=== PATIENT | male | born 2000 | race Caucasian/White ===

== ENCOUNTER 2023-08-02 16:33 | Inpatient (IN) | payer BC, OTHER ==
[~2023-08-02 16:33] MED LIST: Iopamidol 300 61% 100 ML VIAL FS ONE
[2023-08-02] MEDS ORDERED: Ondansetron PF 4 MG/2 ML Vial ONE (17:01)
[2023-08-02] MEDS ORDERED: Morphine 4 MG/ML VIAL ONE ×3 (17:01→20:32)
[2023-08-02 17:23] LABS: #Eosinphils 0.1 10x3/uL (0.0-0.5); #Monocytes 0.7 10x3/uL (0.0-1.1); #Neutrophils 7.7 10x3/uL (1.5-8.4); %Basophils 0.2 % (0.0-2.0); %Eosinophils 0.7 % (0.0-6.0); %Lymphocytes 22.4 % (18.0-47.0); %Monocytes 6.5 % (0.0-10.0); %Neutrophils 69.9 % (40.0-75.0); Hematocrit 43.1 % (38.8-50.0); Hemoglobin 14.9 g/dL (13.5-17.5); Mean Corpuscular HGB CONC 34.6 g/dL (32.0-36.0); Mean Corpuscular Hemoglobin 30.7 pg (27.0-33.0); Mean Corpuscular Volume 88.7 fl (81.2-95.1); Mean Platelet Volume 10.9 fl (7.4-10.4); Platelet Count 278 10x3/uL (150-450); RBC Distribution Width 13.1 % (11.5-14.5); Red Blood Cell (RBC) Count 4.86 10x6/uL (4.32-5.72)
[2023-08-02 17:46] LABS: ALT (SGPT) 39 U/L (8-55); AST (SGOT) 28 U/L (5-34); Albumin 4.8 g/dL (3.5-5.0); Alkaline Phosphatase 65 U/L (40-110); Anion Gap 12 mmol/L (10-20); BUN (Urea Nitrogen) 14 mg/dL (8.9-20.6); Bilirubin, Total 0.6 mg/dL (0.2-1.2); Calc. Creatinine Clearance 0 mL/min (70-130); Calcium 9.4 mg/dL (7.8-10.44); Carbon Dioxide 24 mmol/L (22-29); Chloride 106 mmol/L (98-107); Estimated GFR 130; Glucose 94 mg/dL (70-105); Lipase 11 U/L (8-78); Potassium 3.6 mmol/L (3.5-5.1); Protein, Total 7.8 g/dL (6.0-8.3); Sodium 138 mmol/L (136-145)
[2023-08-02 19:39] LABS: Bilirubin Neg (Negative); Blood, Urine Negative (Negative); Glucose, Urine (Dipstick) Normal (Negative); Ketone, Urine Negative (Negative); Leukocyte Negative (Negative); Nitrite Negative (Negative); Protein, Urine (Dipstick) Negative (Neg-Trace); Specific Gravity, Urine 1.005 (1.005-1.030); Urobilinogen Normal mg/dL (Less than 2); pH, Urine 6.5 (5.0-9.0)
[2023-08-02 19:41] LABS: Clarity Clear (Clear)
[2023-08-02 20:02] LABS: Bacteria/HPF Rare-Few HPF (None Seen); CAUTI Indications for Culture Pelvic or flank pain; RBC/HPF None Seen HPF (0-3); Squamous Epithelial None Seen HPF (0-3); WBC/HPF None Seen HPF (0-3)
[2023-08-02 20:03] LABS: Urine Culture Reflex No No
[2023-08-02] MEDS: Morphine 4 MG/ML VIAL SLOW IVP PRN (20:33)
[2023-08-02] MEDS ORDERED: methylPREDNISolone Sod Succ/PF 125 MG/2 ML VIAL ONE (21:20)
[2023-08-02] MEDS: Lactated Ringer's 500 ML IV SCH (21:23)
[2023-08-02] MEDS: methylPREDNISolone Sod Succ 40 MG VIAL IVP SCH (21:23)
[2023-08-02] MEDS: Dextrose 5%-Lactated Ringers 1,000 ML IV SCH (22:46)
[2023-08-03] MEDS ORDERED: Morphine 4 MG/ML VIAL ONE ×3 (00:37→10:45)
[2023-08-03] MEDS ORDERED: Ondansetron PF 4 MG/2 ML Vial ONE (00:37)
[2023-08-03] MEDS: Ondansetron PF 4 MG/2 ML Vial IVP PRN (00:41)
[2023-08-03 03:49] LABS: #Monocytes 0.1 10x3/uL (0.0-1.1); #Neutrophils 7.8 10x3/uL (1.5-8.4); %Basophils 0.1 % (0.0-2.0); %Lymphocytes 13.5 % (18.0-47.0); %Monocytes 1.4 % (0.0-10.0); %Neutrophils 84.8 % (40.0-75.0); Hematocrit 39.2 % (38.8-50.0); Mean Corpuscular HGB CONC 33.2 g/dL (32.0-36.0); Mean Corpuscular Hemoglobin 29.7 pg (27.0-33.0); Mean Corpuscular Volume 89.7 fl (81.2-95.1); Mean Platelet Volume 10.7 fl (7.4-10.4); Platelet Count 251 10x3/uL (150-450); Red Blood Cell (RBC) Count 4.37 10x6/uL (4.32-5.72); White Blood Cell (WBC) Count 9.2 10x3/uL (3.5-10.5)
[2023-08-03 04:01] LABS: Anion Gap 11 mmol/L (10-20); BUN (Urea Nitrogen) 9 mg/dL (8.9-20.6); CRP (Inflammatory) Less than 0.50 mg/dL (= or < 0.5); Calc. Creatinine Clearance 202 mL/min (70-130); Calcium 8.6 mg/dL (7.8-10.44); Carbon Dioxide 26 mmol/L (22-29); Chloride 105 mmol/L (98-107); Estimated GFR 131; Glucose 131 mg/dL (70-105); Magnesium 2.1 mg/dL (1.6-2.6); Potassium 4.1 mmol/L (3.5-5.1); Sodium 138 mmol/L (136-145)
[2023-08-03] MEDS ORDERED: Enoxaparin 40 MG (0.4 mL) SYRINGE ONE (09:08)
[2023-08-03] MEDS ORDERED: Pantoprazole 40 MG VIAL ONE (09:08)
[2023-08-03] MEDS ORDERED: methylPREDNISolone Sod Succ 40 MG VIAL ONE (09:08)
[2023-08-03] MEDS: Enoxaparin 40 MG (0.4 mL) SYRINGE SC SCH (09:24)
[2023-08-03] MEDS: methylPREDNISolone Sod Succ 40 MG VIAL IVP SCH (09:24)
[2023-08-03] MEDS: Pantoprazole 40 MG VIAL IVP SCH (09:25)
[2023-08-03] MEDS: Morphine 2 MG/ML VIAL SLOW IVP PRN (15:15)
[2023-08-03] MEDS: Acetaminophen 325 MG TAB PO PRN (17:36)
[2023-08-04] MEDS: Dextrose 5%-Lactated Ringers 1,000 ML IV SCH (14:13)
[2023-08-04] MEDS: methylPREDNISolone Sod Succ 40 MG VIAL IVP SCH (20:33)
[2023-08-05] MEDS: HYDROcodone/Acetaminophen 5/325 mg Tablet PO SCH (01:06)
[2023-08-05] MEDS: Morphine 2 MG/ML VIAL SLOW IVP SCH ×2 (02:23→04:12)
[2023-08-05 03:54] LABS: #Monocytes 0.3 10x3/uL (0.0-1.1); #Neutrophils 7.6 10x3/uL (1.5-8.4); %Lymphocytes 12.9 % (18.0-47.0); %Monocytes 3.2 % (0.0-10.0); %Neutrophils 83.6 % (40.0-75.0); Hemoglobin 13.5 g/dL (13.5-17.5); Mean Corpuscular HGB CONC 33.8 g/dL (32.0-36.0); Mean Corpuscular Hemoglobin 30.1 pg (27.0-33.0); Mean Corpuscular Volume 89.3 fl (81.2-95.1); Mean Platelet Volume 11.1 fl (7.4-10.4); Platelet Count 230 10x3/uL (150-450); RBC Distribution Width 13.2 % (11.5-14.5); Red Blood Cell (RBC) Count 4.48 10x6/uL (4.32-5.72); White Blood Cell (WBC) Count 9.1 10x3/uL (3.5-10.5)
[2023-08-05 04:17] LABS: Lactic Acid 1.2 mmol/L (0.5-2.2)
[2023-08-05 04:19] LABS: Anion Gap 12 mmol/L (10-20); BUN (Urea Nitrogen) 5 mg/dL (8.9-20.6); Calc. Creatinine Clearance 223 mL/min (70-130); Calcium 8.7 mg/dL (7.8-10.44); Carbon Dioxide 26 mmol/L (22-29); Chloride 104 mmol/L (98-107); Estimated GFR 135; Glucose 108 mg/dL (70-105); Potassium 3.4 mmol/L (3.5-5.1); Sodium 139 mmol/L (136-145)
[2023-08-05] MEDS: traMADol HCl 50 MG TAB PO SCH (06:15)
[2023-08-05] MEDS: Lactated Ringer's 1,000 ML IV SCH (07:16)
[2023-08-05] MEDS: Dicyclomine 10 MG CAP PO SCH (08:24)
[2023-08-05] MEDS ORDERED: Iopamidol 300 61% 100 ML VIAL FS ONE (10:39)
[2023-08-05] MEDS: Morphine 2 MG/ML VIAL SLOW IVP PRN (13:48)
[2023-08-06 05:34] LABS: #Monocytes 0.7 10x3/uL (0.0-1.1); #Neutrophils 5.7 10x3/uL (1.5-8.4); %Basophils 0.1 % (0.0-2.0); %Lymphocytes 24.1 % (18.0-47.0); %Monocytes 8.2 % (0.0-10.0); %Neutrophils 67.4 % (40.0-75.0); Hematocrit 39.4 % (38.8-50.0); Hemoglobin 12.9 g/dL (13.5-17.5); Mean Corpuscular HGB CONC 32.7 g/dL (32.0-36.0); Mean Corpuscular Hemoglobin 29.1 pg (27.0-33.0); Mean Corpuscular Volume 88.9 fl (81.2-95.1); Mean Platelet Volume 11.3 fl (7.4-10.4); Platelet Count 244 10x3/uL (150-450); RBC Distribution Width 13.4 % (11.5-14.5); Red Blood Cell (RBC) Count 4.43 10x6/uL (4.32-5.72); White Blood Cell (WBC) Count 8.4 10x3/uL (3.5-10.5)
[2023-08-06] MEDS: Dicyclomine 10 MG CAP PO SCH (09:11)
[2023-08-06] MEDS: Polyethylene Glycol 3350 17 GM Packet PO SCH (09:33)
[2023-08-06] MEDS: Sodium Chloride 0.9% 500 ML IV SCH (10:07)
[2023-08-06 13:29] LABS: Anion Gap 12 mmol/L (10-20); BUN (Urea Nitrogen) 11 mg/dL (8.9-20.6); Calc. Creatinine Clearance 199 mL/min (70-130); Carbon Dioxide 27 mmol/L (22-29); Chloride 103 mmol/L (98-107); Estimated GFR 131; Glucose 98 mg/dL (70-105); Potassium 3.4 mmol/L (3.5-5.1); Sodium 139 mmol/L (136-145)
[2023-08-06] MEDS: azaTHIOprine 50 MG TAB PO SCH (13:47)
[2023-08-06] MEDS: Sodium Chloride 0.9% 1,000 ML IV SCH (13:48)
[2023-08-06] MEDS: HYDROcodone/Acetaminophen 5/325 mg Tablet PO PRN (13:54)
[2023-08-06 14:05] LABS: Lavender RECEIVED; Red RECEIVED
[2023-08-07] MEDS: Gabapentin 300 MG CAP PO SCH (01:09)
[2023-08-07] MEDS: Ketorolac Tromethamine 30 MG (1 mL) VIAL IVP SCH (02:00)
[2023-08-07] MEDS: Morphine 2 MG/ML VIAL SLOW IVP SCH (02:04)
[2023-08-07 03:55] LABS: #Monocytes 0.7 10x3/uL (0.0-1.1); #Neutrophils 8.6 10x3/uL (1.5-8.4); %Basophils 0.1 % (0.0-2.0); %Lymphocytes 12.8 % (18.0-47.0); %Monocytes 6.7 % (0.0-10.0); %Neutrophils 80.1 % (40.0-75.0); Hemoglobin 13.5 g/dL (13.5-17.5); Mean Corpuscular HGB CONC 34.6 g/dL (32.0-36.0); Mean Corpuscular Hemoglobin 30.5 pg (27.0-33.0); Mean Corpuscular Volume 88.2 fl (81.2-95.1); Mean Platelet Volume 11.1 fl (7.4-10.4); Platelet Count 240 10x3/uL (150-450); RBC Distribution Width 13.2 % (11.5-14.5); Red Blood Cell (RBC) Count 4.42 10x6/uL (4.32-5.72); White Blood Cell (WBC) Count 10.7 10x3/uL (3.5-10.5)
[2023-08-07 04:16] LABS: Anion Gap 12 mmol/L (10-20); BUN (Urea Nitrogen) 10 mg/dL (8.9-20.6); Calc. Creatinine Clearance 229 mL/min (70-130); Calcium 8.3 mg/dL (7.8-10.44); Carbon Dioxide 25 mmol/L (22-29); Chloride 103 mmol/L (98-107); Estimated GFR 137; Glucose 111 mg/dL (70-105); Sodium 137 mmol/L (136-145)
[2023-08-07] MEDS: Potassium Chloride 20 MEQ TAB PO SCH (08:37)
[2023-08-07] MEDS: azaTHIOprine 50 MG TAB PO SCH (08:38)
[2023-08-07] MEDS ORDERED: azaTHIOprine 50 MG TAB PO SCH (09:00)
[2023-08-07] MEDS ORDERED: Communication Order-Pharmacy FS SCH (15:45)
[2023-08-08 04:58] LABS: #Monocytes 0.3 10x3/uL (0.0-1.1); #Neutrophils 6.2 10x3/uL (1.5-8.4); %Basophils 0.1 % (0.0-2.0); %Lymphocytes 17.8 % (18.0-47.0); %Monocytes 4.3 % (0.0-10.0); %Neutrophils 77.3 % (40.0-75.0); Hematocrit 40.4 % (38.8-50.0); Hemoglobin 13.5 g/dL (13.5-17.5); Mean Corpuscular HGB CONC 33.4 g/dL (32.0-36.0); Mean Corpuscular Hemoglobin 30.1 pg (27.0-33.0); Mean Platelet Volume 11.7 fl (7.4-10.4); Platelet Count 229 10x3/uL (150-450); RBC Distribution Width 13.3 % (11.5-14.5); Red Blood Cell (RBC) Count 4.49 10x6/uL (4.32-5.72)
[2023-08-08 05:06] LABS: Anion Gap 13 mmol/L (10-20); BUN (Urea Nitrogen) 8 mg/dL (8.9-20.6); Calc. Creatinine Clearance 214 mL/min (70-130); Calcium 8.2 mg/dL (7.8-10.44); Carbon Dioxide 23 mmol/L (22-29); Chloride 105 mmol/L (98-107); Estimated GFR 136; Glucose 102 mg/dL (70-105); Potassium 3.4 mmol/L (3.5-5.1); Sodium 138 mmol/L (136-145)
[2023-08-08] MEDS: Potassium Bicarbonate/Cit Ac 20 MEQ TAB PO SCH (09:23)
[2023-08-08] MEDS: Potassium Chloride 20 MEQ TAB PO SCH (11:00)
[2023-08-09 04:25] LABS: #Monocytes 0.3 10x3/uL (0.0-1.1); #Neutrophils 6.3 10x3/uL (1.5-8.4); %Basophils 0.1 % (0.0-2.0); %Lymphocytes 16.2 % (18.0-47.0); %Monocytes 3.8 % (0.0-10.0); %Neutrophils 79.5 % (40.0-75.0); Anion Gap 12 mmol/L (10-20); BUN (Urea Nitrogen) 10 mg/dL (8.9-20.6); Calc. Creatinine Clearance 214 mL/min (70-130); Calcium 8.5 mg/dL (7.8-10.44); Carbon Dioxide 25 mmol/L (22-29); Chloride 101 mmol/L (98-107); Estimated GFR 136; Glucose 124 mg/dL (70-105); Hematocrit 43.2 % (38.8-50.0); Hemoglobin 14.3 g/dL (13.5-17.5); Mean Corpuscular HGB CONC 33.1 g/dL (32.0-36.0); Mean Corpuscular Hemoglobin 29.4 pg (27.0-33.0); Mean Corpuscular Volume 88.9 fl (81.2-95.1); Mean Platelet Volume 11.5 fl (7.4-10.4); Platelet Count 246 10x3/uL (150-450); Potassium 3.4 mmol/L (3.5-5.1); Red Blood Cell (RBC) Count 4.86 10x6/uL (4.32-5.72); Sodium 135 mmol/L (136-145)
[2023-08-09] MEDS: Potassium Chloride 20 MEQ TAB PO SCH (08:32)
[2023-08-09] MEDS ORDERED: INFLIXIMAB DYYB IVPB SCH (12:00)
[2023-08-09] MEDS ORDERED: SODIUM CHLORIDE 0.9% IVPB SCH (12:00)
[2023-08-10 03:46] LABS: Anion Gap 13 mmol/L (10-20); BUN (Urea Nitrogen) 12 mg/dL (8.9-20.6); Calc. Creatinine Clearance 239 mL/min (70-130); Calcium 8.6 mg/dL (7.8-10.44); Carbon Dioxide 22 mmol/L (22-29); Chloride 104 mmol/L (98-107); Estimated GFR 141; Glucose 100 mg/dL (70-105); Potassium 3.6 mmol/L (3.5-5.1); Sodium 135 mmol/L (136-145)
[2023-08-10 04:25] LABS: #Monocytes 1.4 10x3/uL (0.0-1.1); #Neutrophils 11.2 10x3/uL (1.5-8.4); %Basophils 0.1 % (0.0-2.0); %Monocytes 9.6 % (0.0-10.0); %Neutrophils 79.9 % (40.0-75.0); Hematocrit 41.9 % (38.8-50.0); Hemoglobin 14.3 g/dL (13.5-17.5); Mean Corpuscular HGB CONC 34.1 g/dL (32.0-36.0); Mean Corpuscular Hemoglobin 30.2 pg (27.0-33.0); Mean Corpuscular Volume 88.6 fl (81.2-95.1); Mean Platelet Volume 11.6 fl (7.4-10.4); Platelet Count 243 10x3/uL (150-450); RBC Distribution Width 12.8 % (11.5-14.5); Red Blood Cell (RBC) Count 4.73 10x6/uL (4.32-5.72); White Blood Cell (WBC) Count 14.1 10x3/uL (3.5-10.5)
[2023-08-10 09:54] VITALS: BMI 30.6
[2023-08-11 05:28] LABS: #Monocytes 0.9 10x3/uL (0.0-1.1); #Neutrophils 6.1 10x3/uL (1.5-8.4); %Basophils 0.1 % (0.0-2.0); %Eosinophils 0.1 % (0.0-6.0); %Lymphocytes 18.6 % (18.0-47.0); %Monocytes 10.6 % (0.0-10.0); %Neutrophils 70.3 % (40.0-75.0); Hematocrit 41.4 % (38.8-50.0); Hemoglobin 13.9 g/dL (13.5-17.5); Mean Corpuscular HGB CONC 33.6 g/dL (32.0-36.0); Mean Corpuscular Hemoglobin 29.4 pg (27.0-33.0); Mean Corpuscular Volume 87.7 fl (81.2-95.1); Mean Platelet Volume 11.4 fl (7.4-10.4); Platelet Count 237 10x3/uL (150-450); Red Blood Cell (RBC) Count 4.72 10x6/uL (4.32-5.72); White Blood Cell (WBC) Count 8.6 10x3/uL (3.5-10.5)
[2023-08-11 05:32] LABS: Anion Gap 15 mmol/L (10-20); BUN (Urea Nitrogen) 11 mg/dL (8.9-20.6); Calc. Creatinine Clearance 214 mL/min (70-130); Calcium 8.6 mg/dL (7.8-10.44); Carbon Dioxide 24 mmol/L (22-29); Chloride 102 mmol/L (98-107); Estimated GFR 136; Glucose 104 mg/dL (70-105); Potassium 3.5 mmol/L (3.5-5.1); Sodium 137 mmol/L (136-145)
[2023-08-11] MEDS: INFLIXIMAB-DYYB 900 MG in Sodium Chloride 0.9% 250 ML 250 ML IVPB SCH (13:32)
[2023-08-12 06:42] LABS: #Monocytes 0.9 10x3/uL (0.0-1.1); #Neutrophils 6.5 10x3/uL (1.5-8.4); %Basophils 0.1 % (0.0-2.0); %Lymphocytes 19.3 % (18.0-47.0); %Neutrophils 69.9 % (40.0-75.0); Hemoglobin 13.8 g/dL (13.5-17.5); Mean Corpuscular HGB CONC 34.5 g/dL (32.0-36.0); Mean Corpuscular Hemoglobin 30.5 pg (27.0-33.0); Mean Corpuscular Volume 88.5 fl (81.2-95.1); Mean Platelet Volume 11.4 fl (7.4-10.4); Platelet Count 252 10x3/uL (150-450); RBC Distribution Width 13.2 % (11.5-14.5); Red Blood Cell (RBC) Count 4.52 10x6/uL (4.32-5.72); White Blood Cell (WBC) Count 9.2 10x3/uL (3.5-10.5)
[2023-08-12 07:06] LABS: Anion Gap 13 mmol/L (10-20); BUN (Urea Nitrogen) 13 mg/dL (8.9-20.6); Calc. Creatinine Clearance 227 mL/min (70-130); Calcium 8.7 mg/dL (7.8-10.44); Carbon Dioxide 26 mmol/L (22-29); Chloride 103 mmol/L (98-107); Estimated GFR 139; Glucose 98 mg/dL (70-105); Potassium 3.8 mmol/L (3.5-5.1); Sodium 138 mmol/L (136-145)
[2023-08-12 08:57] VITALS: BP 98/57; TEMP 97.6
== END 2023-08-12 10:45 | disposition home or self-care (01) | DRG 387 ==
LOC: CSHERS 16:33 → EDBD 16:33 → CSHERHOLD 18:50 → CSHTELE 08-03 11:42
PROVIDERS: ADMIT Student in an Organized Health Care Education/Training Program; ATTEND Internal Medicine
DX: K50.912 Crohn's disease, unspecified, with intestinal obstruction (principal); F41.9 Anxiety disorder, unspecified; F32.9 Major depressive disorder, single episode, unspecified; Z79.899 Other long term (current) drug therapy; I95.9 Hypotension, unspecified; E87.6 Hypokalemia
CPT/HCPCS: 36415; 36416; 74177; 74250; 80048; 80053; 81001; 82274; 83605; 83690; 83735; 85025; 86140; 93005; 93010; 96374; 96375; 96376; C9113; J1650; J2270; J2272; J2405; J2920; J2930; J7030; J7050; J7120; J7500; Q5103; Q9967

== ENCOUNTER 2023-08-16 10:15 | Emergency (ER) | payer BC ==
[2023-08-16 10:58] LABS: #Eosinphils 0.1 10x3/uL (0.0-0.5); #Neutrophils 8.2 10x3/uL (1.5-8.4); %Basophils 0.2 % (0.0-2.0); %Eosinophils 0.6 % (0.0-6.0); %Lymphocytes 23.9 % (18.0-47.0); %Monocytes 8.4 % (0.0-10.0); %Neutrophils 66.5 % (40.0-75.0); Hematocrit 43.4 % (38.8-50.0); Hemoglobin 14.3 g/dL (13.5-17.5); Mean Corpuscular HGB CONC 32.9 g/dL (32.0-36.0); Mean Corpuscular Hemoglobin 29.2 pg (27.0-33.0); Mean Corpuscular Volume 88.6 fl (81.2-95.1); Mean Platelet Volume 10.3 fl (7.4-10.4); Platelet Count 260 10x3/uL (150-450); RBC Distribution Width 13.8 % (11.5-14.5); White Blood Cell (WBC) Count 12.3 10x3/uL (3.5-10.5)
[2023-08-16 11:15] LABS: ALT (SGPT) 28 U/L (8-55); AST (SGOT) 13 U/L (5-34); Albumin 3.8 g/dL (3.5-5.0); Alkaline Phosphatase 52 U/L (40-110); Anion Gap 13 mmol/L (10-20); BUN (Urea Nitrogen) 20 mg/dL (8.9-20.6); Bilirubin, Total 0.5 mg/dL (0.2-1.2); Calc. Creatinine Clearance 0 mL/min (70-130); Calcium 8.4 mg/dL (7.8-10.44); Carbon Dioxide 26 mmol/L (22-29); Chloride 105 mmol/L (98-107); Estimated GFR 127; Globulin 2.6 g/dL (2.4-3.5); Glucose 82 mg/dL (70-105); Potassium 3.6 mmol/L (3.5-5.1); Protein, Total 6.4 g/dL (6.0-8.3); Sodium 140 mmol/L (136-145)
== END 2023-08-16 12:17 | disposition home or self-care (01) ==
LOC: CSHERS 10:15
DX: I80.8 Phlebitis and thrombophlebitis of other sites (principal); D72.829 Elevated white blood cell count, unspecified
CPT/HCPCS: 80053; 85025; 85379

== ENCOUNTER 2023-08-26 05:18 | Emergency (ER) | payer BC ==
[2023-08-26] MEDS ORDERED: Ondansetron PF 4 MG/2 ML Vial ONE (05:31)
[2023-08-26] MEDS ORDERED: Promethazine HCl 12.5 MG, Admixture Fee 1 EACH in Sodium Chloride 0.9% 50 ML IVPB SCH (06:00)
[2023-08-26 06:08] LABS: #Monocytes 1.4 10x3/uL (0.0-1.1); #Neutrophils 10.2 10x3/uL (1.5-8.4); %Basophils 0.2 % (0.0-2.0); %Eosinophils 0.1 % (0.0-6.0); %Lymphocytes 21.3 % (18.0-47.0); %Monocytes 9.2 % (0.0-10.0); %Neutrophils 68.4 % (40.0-75.0); Hematocrit 37.5 % (38.8-50.0); Hemoglobin 12.2 g/dL (13.5-17.5); Mean Corpuscular HGB CONC 32.5 g/dL (32.0-36.0); Mean Corpuscular Hemoglobin 29.2 pg (27.0-33.0); Mean Corpuscular Volume 89.7 fl (81.2-95.1); Mean Platelet Volume 9.5 fl (7.4-10.4); Platelet Count 371 10x3/uL (150-450); RBC Distribution Width 14.2 % (11.5-14.5); Red Blood Cell (RBC) Count 4.18 10x6/uL (4.32-5.72); White Blood Cell (WBC) Count 14.9 10x3/uL (3.5-10.5)
[2023-08-26] MEDS ORDERED: Morphine 2 MG/ML VIAL ONE (06:10)
[2023-08-26 06:17] LABS: Acetaminophen Less than 10 mcg/mL (10.0-30.0); Salicylate Less than 8.0 mg/dL (15.0-30.0)
[2023-08-26 06:19] LABS: ALT (SGPT) 42 U/L (8-55); AST (SGOT) 16 U/L (5-34); Albumin 3.7 g/dL (3.5-5.0); Alkaline Phosphatase 47 U/L (40-110); Anion Gap 13 mmol/L (10-20); BUN (Urea Nitrogen) 16 mg/dL (8.9-20.6); Bilirubin, Total 0.2 mg/dL (0.2-1.2); Calc. Creatinine Clearance 0 mL/min (70-130); Calcium 8.2 mg/dL (7.8-10.44); Carbon Dioxide 22 mmol/L (22-29); Chloride 107 mmol/L (98-107); Estimated GFR 131; Globulin 2.3 g/dL (2.4-3.5); Glucose 88 mg/dL (70-105); Potassium 3.3 mmol/L (3.5-5.1); Sodium 139 mmol/L (136-145)
[2023-08-26 06:49] LABS: CRP (Inflammatory) Less than 0.50 mg/dL (= or < 0.5); Lipase 11 U/L (8-78)
[2023-08-26] MEDS ORDERED: Dicyclomine 20 MG/2 ML VIAL ONE (09:27)
[2023-08-26] MEDS ORDERED: Dicyclomine 20 MG TAB PO SCH (09:45)
[2023-08-26 10:26] LABS: Lactic Acid 1.9 mmol/L (0.5-2.2)
[2023-08-26] MEDS ORDERED: Potassium Chloride 20 MEQ TAB ONE (10:53)
[2023-08-26] MEDS ORDERED: Iopamidol 300 61% 100 ML VIAL FS ONE (14:38)
== END 2023-08-26 10:54 | disposition home or self-care (01) ==
LOC: CSHERS 05:18
DX: F10.129 Alcohol abuse with intoxication, unspecified (principal)
CPT/HCPCS: 36415; 74177; 80053; 80307; 83605; 83690; 85025; 86140; 87040; 96361; 96374; 96375; J2272; J2405; J2550

== ENCOUNTER 2023-12-19 12:08 | Emergency (ER) | payer OTHER | END 2023-12-19 13:12 | disposition home or self-care (01) | LOC: CSHERS 12:08 | DX: S46.911A Strain of unspecified muscle, fascia and tendon at shoulder and upper arm level, right arm, initial encounter (principal); F17.210 Nicotine dependence, cigarettes, uncomplicated; X50.0XXA Overexertion from strenuous movement or load, initial encounter; Y99.0 Civilian activity done for income or pay | CPT/HCPCS: J8540 ==

== ENCOUNTER 2024-01-07 02:30 | Emergency (ER) | payer OTHER ==
[2024-01-07] MEDS ORDERED: Ondansetron PF 4 MG/2 ML Vial ONE (03:30)
[2024-01-07] MEDS ORDERED: Morphine 4 MG/ML VIAL ONE ×2 (03:30→04:22)
[2024-01-07 03:49] LABS: #Basophils 0.03 10x3/uL (0.0-0.2); #Eosinphils 0.03 10x3/uL (0.0-0.5); #Monocytes 1.18 10x3/uL (0.0-1.1); #Neutrophils 15.03 10x3/uL (1.5-8.4); %Basophils 0.2 % (0.0-2.0); %Eosinophils 0.2 % (0.0-6.0); %Lymphocytes 5.1 % (18.0-47.0); %Monocytes 6.9 % (0.0-10.0); %Neutrophils 87.2 % (40.0-75.0); Hematocrit 42.1 % (38.8-50.0); Hemoglobin 14.8 g/dL (13.5-17.5); Mean Corpuscular HGB CONC 35.2 g/dL (32.0-36.0); Mean Corpuscular Hemoglobin 31.4 pg (27.0-33.0); Mean Corpuscular Volume 89.2 fL (81.2-95.1); Platelet Count 263 10x3/uL (150-450); RBC Distribution Width 13.7 % (11.5-14.5); Red Blood Cell (RBC) Count 4.72 10x6/uL (4.32-5.72); White Blood Cell (WBC) Count 17.2 10x3/uL (3.5-10.5)
[2024-01-07 03:51] LABS: ALT (SGPT) 18 U/L (8-55); AST (SGOT) 23 U/L (5-34); Albumin 4.5 g/dL (3.5-5.0); Alkaline Phosphatase 68 U/L (40-110); Anion Gap 15 mmol/L (10-20); BUN (Urea Nitrogen) 15 mg/dL (8.9-20.6); Bilirubin, Total 0.5 mg/dL (0.2-1.2); Calc. Creatinine Clearance 0 mL/min (70-130); Calcium 9.7 mg/dL (7.8-10.44); Carbon Dioxide 24 mmol/L (22-29); Chloride 105 mmol/L (98-107); Estimated GFR 127; Globulin 3.3 g/dL (2.4-3.5); Glucose 98 mg/dL (70-105); Lipase 7 U/L (8-78); Potassium 3.4 mmol/L (3.5-5.1); Protein, Total 7.8 g/dL (6.0-8.3); Sodium 141 mmol/L (136-145)
[2024-01-07] MEDS ORDERED: Dexamethasone 10 MG/ML VIAL ONE (05:02)
[2024-01-07] MEDS ORDERED: Iopamidol 300 61% 100 ML VIAL FS ONE (13:17)
== END 2024-01-07 05:20 | disposition home or self-care (01) ==
LOC: CSHERS 02:30
DX: K50.90 Crohn's disease, unspecified, without complications (principal); F17.290 Nicotine dependence, other tobacco product, uncomplicated; F17.210 Nicotine dependence, cigarettes, uncomplicated
CPT/HCPCS: 74177; 80053; 83690; 85025; 96361; 96374; 96375; 96376; J1100; J2270; J2405; Q9967

== ENCOUNTER 2025-05-10 14:57 | Emergency (ER) | payer OTHER ==
[2025-05-10] MEDS ORDERED: Bacitracin 1 PK ONE (15:51)
== END 2025-05-10 15:48 | disposition home or self-care (01) ==
LOC: CSHERS 14:57
DX: S91.011D Laceration without foreign body, right ankle, subsequent encounter (principal); F17.290 Nicotine dependence, other tobacco product, uncomplicated; F17.210 Nicotine dependence, cigarettes, uncomplicated